=== PATIENT | female | born 1990 ===

== ENCOUNTER 2016-12-07 08:58 | Emergency (ER) | payer MEDICAID, OTHER ==
[2016-12-07 09:04] VITALS: BMI 29.9
[2016-12-07 09:12] VITALS: O2SAT 98
--- NOTE | 2016-12-07 09:58 | ED PDOC ---
HPI: Abdomen Time Seen by Provider: 12/07/16 09:13 Chief Complaint (Nursing): Abdominal Pain Chief Complaint (Provider): pelvic pain History Per: Patient History/Exam Limitations: no limitations Onset/Duration Of Symptoms: Gradual Severity: Mild Location Of Pain/Discomfort: Suprapubic Quality Of Discomfort: Dull Associated Symptoms: denies: Fever, Chills, Nausea, Vomiting, Chest Pain, Constipation, Urinary Symptoms Exacerbating Factors: None Alleviating Factors: None Additional History Per: Patient Abnormal Vaginal Bleeding: No Past Medical History Reviewed: Historical Data, Nursing Documentation, Vital Signs Vital Signs: Last Vital Signs Temp 98.0 F 12/07/16 09:03 Pulse 85 12/07/16 09:03 Resp 16 12/07/16 09:03 BP 132/83 12/07/16 09:03 Pulse Ox 98 12/07/16 09:58 - Medical History PMH: No Chronic Diseases - Surgical History Surgical History: No Surg Hx - Family History Family History: States: Unknown Family Hx - Living Arrangements Living Arrangements: With Family - Social History Current smoker - smoking cessation education provided: No - Home Medications Home Medications: Ambulatory Orders Medication Instructions Recorded Naproxen 500 mg PO BID #20 tab 03/12/14 Hydrocodone/Acetaminophen [[place] 1 each PO QID PRN #10 tablet 12/07/16 5-325 Tablet] - Allergies Allergies/Adverse Reactions: Allergies Allergy/AdvReac Type Severity Reaction Status Date / Time No Known Allergies Allergy Verified 12/07/16 09:10 Review of Systems ROS Statement: Except As Marked, All Systems Reviewed And Found Negative Constitutional: Negative for: Fever, Chills Cardiovascular: Negative for: Chest Pain, Palpitations Respiratory: Negative for: Cough, Shortness of Breath Gastrointestinal: Negative for: Nausea, Vomiting, Abdominal Pain Genitourinary Female: Positive for: Pelvic Pain. Negative for: Dysuria, Hematuria, Vaginal Discharge, Vaginal Bleeding Musculoskeletal: Negative for: Neck Pain Skin: Negative for: Rash Neurological: Negative for: Weakness, Numbness Physical Exam - Reviewed Nursing Documentation Reviewed: Yes Vital Signs Reviewed: Yes - Physical Exam Appears: Positive for: Uncomfortable Head Exam: Positive for: ATRAUMATIC, NORMAL INSPECTION, NORMOCEPHALIC Neck: Positive for: Normal, Painless ROM, Supple Cardiovascular/Chest: Positive for: Regular Rate, Rhythm Respiratory: Positive for: Normal Breath Sounds Gastrointestinal/Abdominal: Positive for: Normal Exam, Bowel Sounds, Soft. Negative for: Tenderness Extremity: Positive for: Normal ROM. Negative for: Tenderness, Pedal Edema Neurologic/Psych: Positive for: Alert, consulting property manager II-XII, Oriented. Negative for: Motor/Sensory Deficits - Laboratory Results Urine POC: Negative - ECG O2 Sat by Pulse Oximetry: 98 Pulse Ox Interpretation: Normal - Progress ED Course And Treament: transvag us reveals hemorrhagic cyst on the right, ua nml. advise close f/u with ob. nsaids for pain. pt agree's with plan and leaves ambulatory and in good spirits. Re-evaluation Time: 11:01 Condition: Improved Disposition - Clinical Impression Clinical Impression: Ovarian cyst, right - Patient ED Disposition Is Patient to be Admitted: No Counseled Patient/Family Regarding: Studies Performed, Diagnosis, Need For Followup, Rx Given - Disposition [facility] Disposition: Routine/Home Disposition Time: 11:02 Condition: STABLE Additional Instructions: return to ed if worse Prescriptions: Hydrocodone/Acetaminophen [[place] 5-325 Tablet] 1 each PO QID PRN #10 tablet PRN Reason: Pain, Moderate (4-7) Instructions: Ovarian Cyst (ED) Forms: [facility] (Maori) Print Language: ECUADOREAN
[2016-12-07 10:23] LABS: RBC URINE 2 /hpf (0-3); URINE BACTERIA RARE (<OCC); URINE BILIRUBIN NEGATIVE (NEGATIVE); URINE BLOOD NEGATIVE (NEGATIVE); URINE COLOR YELLOW (YELLOW); URINE GLUCOSE (UA) NEG (Normal); URINE KETONE NEGATIVE (NEGATIVE); URINE LEUKOCYTE ESTERASE NEG Leu/uL (Negative); URINE PROTEIN NEGATIVE (NEGATIVE); URINE UROBILINOGEN 0.2-1.0 mg/dL (0.2-1.0); WBC URINE 1 /hpf (0-5)
[2016-12-07 11:28] VITALS: BP 128/78; PULSE 78; RESP 19; TEMP 97
--- NOTE | 2016-12-07 12:43 | US ---
HISTORY: pelvic pain r/o torsion COMPARISON: None available. TECHNIQUE: Transvaginal pelvic ultrasound was performed. FINDINGS: UTERUS: Measures 8.1 x 4.1 x 4.4 cm. Normal in size and appearance. No fibroid or other mass lesion seen. ENDOMETRIUM: Measures 8.0 mm in diameter. Unremarkable. CERVIX: No cervical abnormality identified. RIGHT OVARY: Measures 5.2 x 4.2 x 3.8 cm. No solid mass. Normal flow. There is a 4.1 x 2.8 x 3.7 cm cyst with internal increased echoes and linear septations. LEFT OVARY: Measures 2.1 x 1.5 x 2.3 cm. No solid mass. Normal flow. FREE FLUID: No significant free fluid noted. OTHER FINDINGS: None. IMPRESSION: 1. 4.1 cm presumable hemorrhagic cyst in the right ovary. No evidence of ovarian torsion. Follow-up ultrasound 3 months interval is recommended to assess resolution. 2. Normal appearance of the uterus and left ovary. No
== END 2016-12-07 11:29 | disposition home or self-care (01) ==
LOC: H.ER 08:58
DX: N83.201 Unspecified ovarian cyst, right side (principal)

== ENCOUNTER 2017-05-01 14:09 | Emergency (ER) | payer MEDICAID ==
[2017-05-01 14:10] VITALS: BMI 29.9
[2017-05-01 14:22] VITALS: BP 125/80; PULSE 79; RESP 16; TEMP 98.7; O2SAT 99
[2017-05-01] MEDS ORDERED: Sodium Chloride 0.9% 1,000 ML IV STA (14:48)
[2017-05-01 14:57] LABS: SQUAMOUS EPITHIAL 8 /hpf (0-5); URINE BACTERIA OCC (<OCC); URINE BILIRUBIN NEGATIVE (NEGATIVE); URINE BLOOD NEGATIVE (NEGATIVE); URINE CLARITY CLOUDY (Clear); URINE COLOR YELLOW (YELLOW); URINE GLUCOSE (UA) NEG (Normal); URINE LEUKOCYTE ESTERASE NEG Leu/uL (Negative); URINE PROTEIN NEGATIVE (NEGATIVE); URINE UROBILINOGEN 0.2-1.0 mg/dL (0.2-1.0)
--- NOTE | 2017-05-01 15:17 | ED PDOC ---
HPI: Abdomen <James Pepe - Last Filed: 05/01/17 18:32> <Marjan Diallo F - Last Filed: 05/01/17 18:56> Time Seen by Provider: 05/01/17 14:47 Chief Complaint (Nursing): Abdominal Pain Additional Complaint(s): 27 YO F at 9 weeks gestation presents to the ED with left lower quadrant pain and headache which started at 11 am his morning. - Describes headache as B/L. Denies any blurring of vision. - Left lower quadrant pain is sharp, rates it at a 8/10. Does not radiate anywhere. Denies any vaginal bleeding or discharge and denies any burning with urination. PMH: x 1 PSH: C section x 1 FH: None SH: Denies smoking, alcohol or illcit drug use PMD: Robin (James Pepe) - AMA Patient Left Against Medical Advice: The patient declines admission to the hospital and wishes to leave the Emergency Department. This action is against my medical advice. This decision was made with informed refusal. The patient was told that admission to the hospital is necessary. Explanation of the reasons why were discussed. The risks of leaving were explained to the patient and include, but are not limited to, worsening of known or currently unknown conditions, permanent disability and from undiagnosed or untreated conditions. The patient has the capacity to make this informed decision and understands my explanation of the current medical problem and risks of leaving. The patient voluntarily accepts these risks and signed an AMA form documenting our conversation. The patient was given the opportunity to ask questions and reconsider. The patient was encouraged to return to the Emergency Department at any time for further care. Past Medical History Reviewed: Historical Data, Nursing Documentation, Vital Signs - Medical History PMH: No Chronic Diseases - Surgical History Surgical History: - Family History Family History: States: No Known Family Hx - Social History Current smoker - smoking cessation education provided: No <James Pepe - Last Filed: 05/01/17 18:32> <Marjan Diallo - Last Filed: 05/01/17 18:56> Vital Signs: Last Vital Signs Temp 98.7 F 05/01/17 14:20 Pulse 79 05/01/17 14:20 Resp 16 05/01/17 14:20 BP 125/80 03/22/18 14:20 Pulse Ox 99 05/01/17 18:32 - Home Medications Home Medications: Ambulatory Orders Medication Instructions Recorded Naproxen 500 mg PO BID #20 tab 03/12/14 Hydrocodone/Acetaminophen [[place] 1 each PO QID PRN #10 tablet 12/07/16 5-325 Tablet] Nitrofurantoin Macrocrystals 100 mg PO BID #14 cap 05/01/17 [Macrobid] - Allergies Allergies/Adverse Reactions: Allergies Allergy/AdvReac Type Severity Reaction Status Date / Time No Known Allergies Allergy Verified 05/01/17 14:19 Physical Exam - Reviewed Vital Signs Reviewed: Yes - Physical Exam Appears: Positive for: No Acute Distress Head Exam: Positive for: ATRAUMATIC, NORMAL INSPECTION, NORMOCEPHALIC Skin: Positive for: Normal Color, Warm Eye Exam: Positive for: Normal appearance Neck: Positive for: Normal Cardiovascular/Chest: Positive for: Regular Rate, Rhythm, Chest Non Tender. Negative for: Murmur Respiratory: Positive for: Normal Breath Sounds. Negative for: Rales, Rhonchi, Wheezing Gastrointestinal/Abdominal: Positive for: Bowel Sounds, Soft, Tenderness (left lower quadrant tenderness). Negative for: Distended, Guarding, Rebound Back: Negative for: L CVA Tenderness, R CVA Tenderness Extremity: Positive for: Tenderness (right calf tenderness) Neurologic/Psych: Positive for: Alert, plastics nurse II-XII, Oriented <James Pepe - Last Filed: 05/01/17 18:32> - Laboratory Results Result Diagrams: 05/01/17 15:10 05/01/17 15:10 - ECG O2 Sat by Pulse Oximetry: 99 <James Pepe - Last Filed: 05/01/17 18:32> - Laboratory Results Result Diagrams: 05/01/17 15:10 05/01/17 15:10 <Marjan Diallo - Last Filed: 05/01/17 18:56> Medical Decision Making <James Pepe - Last Filed: 05/01/17 18:32> <Marjan Diallo - Last Filed: 05/01/17 18:56> Medical Decision Making: CBC CMP Abdominal U/S Venous duplex U/S of lower extremity ordered: Refused by patient Abdominal U/S showed : termination of . Child appeared to be 6 weeks when it was suppose to be 9 weeks. No heart beat found. Awaiting Serum BHCG result. Mother is in a hurry and has agreed to sign out Against medical advise and would not like to wait for results. States she will see her OBGYN tomorrow. She understands the termination of and importance of follow up. (James Pepe) Disposition - Patient ED Disposition Is Patient to be Admitted: No - Disposition Disposition: Against Medical Advice Disposition Time: 18:21 <James Pepe - Last Filed: 05/01/17 18:32> - Disposition Disposition: Against Medical Advice <Marjan Diallo - Last Filed: 05/01/17 18:56> - Clinical Impression Clinical Impression: Abdominal pain, Spontaneous - Disposition Condition: UNKNOWN Prescriptions: Nitrofurantoin Macrocrystals [Macrobid] 100 mg PO BID #14 cap Instructions: Miscarriage Forms: [facility] (Estonian) - PA / FOUNDRY PATTERNMAKER / Resident Statement MD/DO has examined the patient and agrees with the treatment plan. <Marjan Diallo - Last Filed: 05/01/17 18:56>
[2017-05-01 15:33] LABS: ALT/SGPT 29 U/L (9-52); AST/SGOT 18 U/L (14-36); BLOOD UREA NITROGEN 7 mg/dl (7-17); CALCIUM 9.2 mg/dL (8.4-10.2); GFR AFRICAN-AMERICAN > 60; GFR NON-AFRICAN AMERICAN > 60
[2017-05-01 15:34] LABS: BASO % 0.2 % (0.0-2.0); EOS # 0.1 K/uL (0.0-0.7); EOS % 0.8 % (0.0-4.0); HEMOGLOBIN 11.9 g/dL (12.0-16.0); LYMPH # 2.1 K/uL (1.0-4.3); LYMPH % 20.3 % (20.0-40.0); MEAN CELL VOLUME 86.2 fl (81.0-99.0); MEAN CORPUSCULAR HEMOGLOBIN 29.6 pg (27.0-31.0); MEAN CORPUSCULAR HGB CONC 34.4 g/dL (33.0-37.0); MEAN PLATELET VOLUME 8.4 fl (7.2-11.7); MONO # 0.6 K/uL (0.0-0.8); MONO % 5.6 % (0.0-10.0); NEUT # 7.6 K/uL (1.8-7.0); NEUT % 73.1 % (50.0-75.0); NRBC % 0.1 % (0.0-0.0); RBC 4.02 Mil/uL (3.80-5.20); RED CELL DISTRIBUTION WIDTH 13.3 % (11.5-14.5); WHITE BLOOD COUNT 10.4 K/uL (4.8-10.8)
--- NOTE | 2017-05-01 16:37 | US ---
PROCEDURE: HISTORY: LLQ pain LMP 02/17/2017. Estimated gestational age by LMP 10 weeks 3 days COMPARISON: No comparison studies of this . A prior transvaginal ultrasound study from 12/07/2016 is noted TECHNIQUE: Transvaginal ultrasound limited trans abdominal window using pelvic ultrasound FINDINGS: Uterus is retroflexed. Uterus measures 10.8 x 6.2 x 6.0 cm. No uterine masses seen. The the cervical length measures 3.1 an appears closed A missed shape and intrauterine gestational sac estimated at the fundal level with mean sac diameter of 2.02 cm corresponding to a 6 week 4 day gestation is noted. No normal appearing yolk sac is seen. An embryonic pole rump length of 0.72 cm corresponding to a 6 week 4 day gestation is also noted. No embryonic heart activity is noted. Findings are concerning for failed The right ovary measures 3.7 x 2.6 x 2.6 cm. Doppler flow present. A right ovarian cyst measuring 1.4 x 1.0 x 1.4 cm is present. Left ovary measures 2.6 x 2.2 x 1.6 cm. Doppler flow present. IMPRESSION: Findings concerning for a failed biometric parameters correspond to 6 weeks 4 day. . This contrasts with the clinical estimated gestational age of 10 weeks 3 days. Correlation with serial beta HCG levels and/or prior imaging and/or subsequent ultrasound imaging
== END 2017-05-01 17:08 | disposition left against medical advice (07) ==
LOC: H.ER 14:09
DX: O03.9 Complete or unspecified spontaneous abortion without complication (principal); R51 Headache; Z3A.10 10 weeks gestation of pregnancy; O26.891 Other specified pregnancy related conditions, first trimester
CPT/HCPCS: 76815; 76817; 80053; 81003; 81025; 84702; 85025; 99284; J7040

== ENCOUNTER 2018-04-02 17:55 | Emergency (ER) | payer MEDICAID ==
[2018-04-02 18:21] VITALS: BMI 33.6
[2018-04-02 18:22] VITALS: TEMP 98.6
[2018-04-02 18:47] VITALS: RESP 18
--- NOTE | 2018-04-02 20:13 | ED PDOC ---
HPI: Abdomen Time Seen by Provider: 04/02/18 19:17 Chief Complaint (Nursing): Abdominal Pain Chief Complaint (Provider): Abdominal Pain History Per: Patient History/Exam Limitations: no limitations Onset/Duration Of Symptoms: Days (x1) Current Symptoms Are (Timing): Still Present Location Of Pain/Discomfort: RUQ, LUQ Quality Of Discomfort: Pressure, "Pain" Associated Symptoms: Urinary Symptoms Additional Complaint(s): 28 year old female ( ega 11 weeks) presents to the ED with abdominal pain onset x1 day. Patient reports lower abdominal pain but denies any vaginal bleeding or discharge. She states that she feels a pressure-like sensation when she urinates. She spoke to her SEAT COVER CUTTER Dr. Kelly who referred her to the ED. PMD: Katlyn Moran. Abnormal Vaginal Bleeding: No : 3 Para: 1 Past Medical History Reviewed: Historical Data, Nursing Documentation, Vital Signs Vital Signs: Last Vital Signs Temp 98.6 F 04/02/18 18:21 Pulse 78 04/02/18 18:21 Resp 18 04/02/18 18:45 BP 121/80 04/02/18 18:21 Pulse Ox 100 04/02/18 18:21 - Medical History PMH: No Chronic Diseases - Surgical History Surgical History: - Family History Family History: States: Unknown Family Hx - Social History Current smoker - smoking cessation education provided: No Ex-Smoker (has not smoked in the last 12 months): No Alcohol: None Drugs: Denies - Home Medications Home Medications: Ambulatory Orders Medication Instructions Recorded Naproxen 500 mg PO BID #20 tab 03/12/14 Hydrocodone/Acetaminophen [[place] 1 each PO QID PRN #10 tablet 12/07/16 5-325 Tablet] Nitrofurantoin Macrocrystals 100 mg PO BID #14 cap 05/01/17 [Macrobid] - Allergies Allergies/Adverse Reactions: Allergies Allergy/AdvReac Type Severity Reaction Status Date / Time No Known Allergies Allergy Verified 04/02/18 18:44 Review of Systems ROS Statement: Except As Marked, All Systems Reviewed And Found Negative Gastrointestinal: Positive for: Abdominal Pain Genitourinary Female: Negative for: Vaginal Discharge, Vaginal Bleeding Physical Exam - Reviewed Nursing Documentation Reviewed: Yes Vital Signs Reviewed: Yes - Physical Exam Appears: Positive for: No Acute Distress Head Exam: Positive for: ATRAUMATIC, NORMOCEPHALIC Skin: Positive for: Normal Color, Warm, Dry Eye Exam: Positive for: Normal appearance, EOMI, PERRL Neck: Positive for: Normal, Painless ROM, Supple Cardiovascular/Chest: Positive for: Regular Rate, Rhythm. Negative for: Murmur Respiratory: Positive for: Normal Breath Sounds. Negative for: Respiratory Distress Gastrointestinal/Abdominal: Positive for: Tenderness (suprapubic tenderness) Extremity: Positive for: Normal ROM (upper and lower). Negative for: Pedal Edema, Deformity Neurologic/Psych: Positive for: Alert, Oriented (x3) - Laboratory Results Result Diagrams: 04/02/18 20:25 - ECG O2 Sat by Pulse Oximetry: 100 (RA) Pulse Ox Interpretation: Normal Medical Decision Making Medical Decision Making: Time: 1927 Impression: 28 yo with urinary symptoms and abdominal pain; early Plan: --US --labs Time: 2053 Findings Uterus Single live intrauterine gestation. CRL equivalent to 11 wks/2 days] gestation Gestational sac diameter equivalent to 10 wks/6 days gestation age (Ultrasound estimated): 11 weeks 1 day Date of delivery (Ultrasound estimated): 10/21/2018. Heart rate: 162 bpm. Uterus measures 9.9 x 7 x 8.3 cm. No mass. Cervix Long and closed measuring 4 cm. No cervical abnormality seen. Right Ovary Measures 2 x 1.6 x 2 cm. No mass. Normal flow. Left Ovary Measures 3.9 x 2 x 3.4 cm. No mass. Normal flow. Corpus luteal cyst measures 2.2 x 1.5 x 1.5 cm. Free Fluid None. Other Findings None. Impression 1. Single live intrauterine gestation with estimated age of 11 weeks 1 day. 2. Left ovarian corpus luteal cyst. Time: 2201 --Labs reviewed, no clinically significant abnormalities. Patient stable for discharge home. Diagnoses abdominal pain and . Patient to follow up with OB in 1-2 days. Return precautions discussed. Scribe Attestation: Documented by Martha Agarwal, acting as a scribe for Trell Villavicencio MD. Provider Scribe Attestation: All medical record entries made by the Scribe were at my direction and personally dictated by me. I have reviewed the chart and agree that the record accurately reflects my personal performance of the history, physical exam, medical decision making, and the department course for this patient. I have also personally directed, reviewed, and agree with the discharge instructions and disposition. Disposition - Clinical Impression Clinical Impression: Abdominal pain affecting - Disposition Disposition Time: 22:02 Condition: STABLE Instructions: Stomach Pain in Early Forms: [facility] (Pashto) Print Language: CUBAN
[2018-04-02 20:43] LABS: BASO # 0.1 K/uL (0.0-0.2); BASO % 0.4 % (0.0-2.0); EOS # 0.1 K/uL (0.0-0.7); EOS % 0.8 % (0.0-4.0); HEMOGLOBIN 11.3 g/dL (12.0-16.0); LYMPH # 2.8 K/uL (1.0-4.3); LYMPH % 20.6 % (20.0-40.0); MEAN CELL VOLUME 87.8 fl (81.0-99.0); MEAN CORPUSCULAR HEMOGLOBIN 28.6 pg (27.0-31.0); MEAN CORPUSCULAR HGB CONC 32.5 g/dL (33.0-37.0); MEAN PLATELET VOLUME 8.5 fl (7.2-11.7); MONO # 0.9 K/uL (0.0-0.8); MONO % 7.1 % (0.0-10.0); NEUT # 9.5 K/uL (1.8-7.0); NEUT % 71.1 % (50.0-75.0); RBC 3.96 Mil/uL (3.80-5.20); WHITE BLOOD COUNT 13.4 K/uL (4.8-10.8)
[2018-04-02 20:56] LABS: SQUAMOUS EPITHIAL 2 /hpf (0-5); URINE BACTERIA OCC (<OCC); URINE BILIRUBIN NEGATIVE (NEGATIVE); URINE BLOOD SMALL (NEGATIVE); URINE CLARITY SLIGHTY-CLOUDY (Clear); URINE COLOR STRAW (YELLOW); URINE GLUCOSE (UA) NEG (NEGATIVE); URINE LEUKOCYTE ESTERASE NEG Leu/uL (Negative); URINE PROTEIN NEGATIVE (NEGATIVE); URINE UROBILINOGEN 0.2-1.0 mg/dL (0.2-1.0)
[2018-04-03 04:27] VITALS: BP 140/69; PULSE 82; O2SAT 98
--- NOTE | 2018-04-03 13:02 | US ---
Date of service: 04/02/2018 PROCEDURE: First trimester ultrasound HISTORY: /suprapubic pain COMPARISON: None TECHNIQUE: Standard protocol for this study/examination. FINDINGS: LMP: 01/12/2018 Prior examinations from the current : None TECHNIQUE: Real-time 2D imaging, duplex and color Doppler. FINDINGS: Cardiac activity: Present Rate: 162 BPM Measurements: [place] rump length: 4.48 cm Gestational age based on CRL 11 weeks 2 days Gestational age 10 weeks 6 days based on gestational sac measurement 5.10 cm Gestational age derived from LMP: 11 weeks 3 days B[place] based on LMP: 10/19/2018 [place] based on biometry: 10/21/2018 Gestational concordance documented Yolk sac not identified . Cervix: No Cervical abnormalities: Negative examination for cervical dilatation or effacement. Closed cervix measuring 3.95 cm Subchorionic hemorrhage: None UTERUS: 7 x 8.3 x 9.9 cm. ADNEXA: Right: 1.6 x 2 x 2.0 cm. Normal Doppler arterial waveform documented. Left: 2 x 3.4 x 3.9 cm. Simple cyst 1.5 x 1.5 x 2.2 cm. Normal Doppler arterial waveform documented Fluid in the cul-de-sac: None IMPRESSION: 11 weeks 1 day live intrauterine gestation. Gestational concordance documented. Simple cyst presumed to be corpus luteal cyst left ovary. Concordant findings (preliminary report) provided by [facility].
== END 2018-04-02 22:10 | disposition home or self-care (01) ==
LOC: H.ER 17:55
DX: O26.891 Other specified pregnancy related conditions, first trimester (principal); Z3A.11 11 weeks gestation of pregnancy